=== PATIENT | female | born 1990 | race Two or more races ===

== ENCOUNTER 2018-05-16 10:17 | Outpatient (CLI) | payer OTHER | END 2018-05-16 10:20 | disposition home or self-care (01) | LOC: SONOGRAMA 10:17 | DX: E04.1 Nontoxic single thyroid nodule (principal) ==

== ENCOUNTER 2018-12-19 09:17 | Outpatient (CLI) | payer OTHER | END 2018-12-19 09:19 | disposition home or self-care (01) | LOC: SONOGRAMA 09:17 | DX: E04.2 Nontoxic multinodular goiter (principal) ==

== ENCOUNTER → 2024-02-22 | Emergency (ER) | payer OTHER ==
[~2024-02-22] VITALS: Ht 152.4 cm; Wt 54.0 kg
[~2024-02-22] MED LIST: LEVOTHYROXINE25 MCG PO; PROPAFENONE HC225 M1 PO
== END | disposition left against medical advice (07) ==
LOC: ER 20:38
DX: Z53.21 Procedure and treatment not carried out due to patient leaving prior to being seen by health care provider (principal)